=== PATIENT | female | born 1960 | race Caucasian/White ===

== ENCOUNTER 2019-12-13 12:30 | Outpatient (CLI) | payer MEDICAID ==
[~2019-12-13] VITALS: Ht 160 cm; Wt 71.7 kg
[2019-12-13 12:50] VITALS: BP 112/57
--- NOTE | 2019-12-13 23:15 | Consultation ---
DATE OF CONSULTATION: 12/13/2019 CONSULTING PHYSICIAN: Elton Still MD. CHIEF COMPLAINT: Screening colonoscopy evaluation, positive FIT test. PAST MEDICAL HISTORY: 1. Hypertension. 2. Endometriosis. PAST SURGICAL HISTORY: 1. Breast reduction. 2. Tonsillectomy. 3. Hysterectomy. 4. Ovarian removal. MEDICATIONS: Tylenol, Advil, Zocor, and hydrochlorothiazide. FAMILY HISTORY: Noncontributory. SOCIAL HISTORY: The patient quit alcohol many years ago and also quit tobacco many years ago. ALLERGIES: No known drug allergies. REVIEW OF SYSTEMS: Negative. PHYSICAL EXAMINATION: VITAL SIGNS: Temperature 97.7, pulse is 81, respirations 20, blood pressure is 112/67. HEENT: Normocephalic and atraumatic. Sclerae anicteric. NECK: Supple. No evidence of obvious lymphadenopathy. CARDIOVASCULAR: Regular rhythm. Plus S1, S2. LUNGS: Clear to auscultation bilaterally. ABDOMEN: Positive bowel sounds. Soft, nontender. No rebound. No guarding. No peritoneal sign. EXTREMITIES: No cyanosis. No clubbing. No edema. ASSESSMENT AND PLAN: This is a 59-year-old female, FIT test positive, needs a screening colonoscopy. The patient was given instruction for colonoscopy. Risks and benefits of procedure were explained to her. We will schedule her when the authorization is obtained. Elton Still M.D. DR: Farida JOB#: [id number] CC:
[2019-12-14] MEDS ORDERED: HYDROCHLOROTHIA25 MG ORAL (15:48)
[2019-12-14] MEDS ORDERED: ACETAMINOPHEN500 M3 ORAL (15:48)
[2019-12-14] MEDS ORDERED: ZYRTEC10 MG ORAL (15:48)
[2019-12-14] MEDS ORDERED: SIMVASTATIN5 MG ORAL (15:48)
[2019-12-14] MEDS ORDERED: ADVIL200 M2 ORAL (15:48)
== END 2019-12-13 15:49 | disposition home or self-care (01) ==
LOC: PAN 12:30
DX: R19.5 Other fecal abnormalities (principal); I10 Essential (primary) hypertension; Z90.710 Acquired absence of both cervix and uterus; Z90.721 Acquired absence of ovaries, unilateral; Z87.891 Personal history of nicotine dependence; Z79.899 Other long term (current) drug therapy
CPT/HCPCS: G0463

== ENCOUNTER 2020-04-20 12:28 | Outpatient (CLI) | payer MEDICAID ==
[~2020-04-20 12:28] MED LIST: ACETAMINOPHEN500 M3 ORAL; ADVIL200 M2 ORAL; HYDROCHLOROTHIA25 MG ORAL; SIMVASTATIN5 MG ORAL; ZYRTEC10 MG ORAL
--- NOTE | 2020-04-21 14:58 | General Progress Note ---
Subjective ROS Limited/Unobtainable: No Allergies: Coded Allergies: No Known Allergies (Unverified , 12/14/19) Objective General Appearance: alert EENT: normal ENT inspection Neck: supple Cardiovascular: normal rate Respiratory/Chest: decreased breath sounds Abdomen: normal bowel sounds, non tender, soft Extremities: non-tender Assessment/Plan Assessment/Plan: s/p colonoscopy hemorrhoids repeat colonoscopy in 5 years Elton Still MD Apr 21, 2020 14:58
== END 2020-04-20 14:28 | disposition home or self-care (01) ==
LOC: PAN 12:28
DX: K64.9 Unspecified hemorrhoids (principal)
CPT/HCPCS: 99212